=== PATIENT | male | born 1995 | race Hispanic/Latino ===

== ENCOUNTER 2018-02-04 22:10 | Emergency (ER) | payer OTHER, SELFPAY ==
[2018-02-04] MEDS ORDERED: IBUPROFEN 400 MG TAB ONE (23:57)
[2018-02-04] MEDS ORDERED: IBUPROFEN 200 MG TAB PO ONE (23:57)
--- NOTE | 2018-02-05 00:16 | EDPHYS ---
Physician Documentation [facility] Name: Kristopher Jarquin Age: 22 yrs Sex: Male : 1995 Arrival Date: 02/04/2018 Time: 22:11 Bed 23 Private MD: ED Physician Mike Orlando HPI: 02/04 22:49 This 22 yrs old Male presents to ER via Wheelchair with complaints of Leg faisal Injury. 22:49 The patient presents with pain, that is acute. The complaints affect the lateral aspect faisal of left calf. Context: The problem was sustained at home. Onset: The symptoms/episode began/occurred just prior to arrival. Modifying factors: The symptoms are alleviated by nothing. the symptoms are aggravated by nothing. Associated signs and symptoms: The patient has no apparent associated signs or symptoms. Treatment prior to arrival includes: no previous treatment. Severity of symptoms: At their worst the symptoms were mild, in the emergency department the symptoms are unchanged. The patient has not experienced similar symptoms in the past. Historical: - Allergies: 22:16 No Known Allergies; la1 - PMHx: 22:16 None; la1 - Immunization history:: Adult Immunizations up to date. - Social history:: Smoking status: Patient/guardian denies using tobacco. - Family history:: not pertinent. ROS: 22:49 Constitutional: Negative for fever, chills, and weight loss, Eyes: Negative for injury, faisal pain, redness, and discharge, ENT: Negative for injury, pain, and discharge, Neck: Negative for injury, pain, and swelling, Cardiovascular: Negative for chest pain, palpitations, and edema, Respiratory: Negative for shortness of breath, cough, wheezing, and pleuritic chest pain, Abdomen/GI: Negative for abdominal pain, nausea, vomiting, diarrhea, and constipation, Back: Negative for injury and pain, : Negative for injury, bleeding, discharge, and swelling, Skin: Negative for injury, rash, and discoloration, Neuro: Negative for headache, weakness, numbness, tingling, and seizure, Psych: Negative for depression, anxiety, suicide ideation, homicidal ideation, and hallucinations, Allergy/Immunology: Negative for hives, rash, and allergies, Endocrine: Negative for neck swelling, polydipsia, polyuria, polyphagia, and marked weight changes, Hematologic/Lymphatic: Negative for swollen nodes, abnormal bleeding, and unusual bruising. 22:49 MS/extremity: Positive for pain, tenderness, of the left fernandes. Exam: 22:49 Constitutional: This is a well developed, well nourished patient who is awake, alert, faisal and in no acute distress. Head/Face: Normocephalic, atraumatic. Eyes: Pupils equal round and reactive to light, extra-ocular motions intact. Lids and lashes normal. Conjunctiva and sclera are non-icteric and not injected. Cornea within normal limits. Periorbital areas with no swelling, redness, or edema. ENT: Nares patent. No nasal discharge, no septal abnormalities noted. Tympanic membranes are normal and external auditory canals are clear. Oropharynx with no redness, swelling, or masses, exudates, or evidence of obstruction, uvula midline. Mucous membranes moist. Neck: Trachea midline, no thyromegaly or masses palpated, and no cervical lymphadenopathy. Supple, full range of motion without nuchal rigidity, or vertebral point tenderness. No Meningismus. Chest/axilla: Normal chest wall appearance and motion. Nontender with no deformity. No lesions are appreciated. Cardiovascular: Regular rate and rhythm with a normal S1 and S2. No gallops, murmurs, or rubs. Normal PMI, no JVD. No pulse deficits. Respiratory: Lungs have equal breath sounds bilaterally, clear to auscultation and percussion. No rales, rhonchi or wheezes noted. No increased work of breathing, no retractions or nasal flaring. Abdomen/GI: Soft, non-tender, with normal bowel sounds. No distension or tympany. No guarding or rebound. No evidence of tenderness throughout. Back: No spinal tenderness. No costovertebral tenderness. Full range of motion. Male : Normal genitalia with no discharge or lesions. Skin: Warm, dry with normal turgor. Normal color with no rashes, no lesions, and no evidence of cellulitis. Neuro: Awake and alert, GCS 15, oriented to person, place, time, and situation. Cranial nerves II-XII grossly intact. Motor strength 5/5 in all extremities. Sensory grossly intact. Cerebellar exam normal. Normal gait. Psych: Awake, alert, with orientation to person, place and time. Behavior, mood, and affect are within normal limits. 22:49 Musculoskeletal/extremity: Extremities: noted in the lateral aspect of left calf: decreased ROM, pain. Vital Signs: 22:16 BP 140 / 81; Pulse 90; Resp 19; Temp 97.8; Pulse Ox 100% on R/A; Weight 52.16 kg; la1 Height 5 ft. 4 in. (162.56 cm); 22:35 BP 154 / 80; Pulse 78; Resp 18; Pulse Ox 100% on R/A; tl3 02/05 00:01 BP 131 / 55; Pulse 86; Resp 16; Pulse Ox 100% on R/A; tl3 00:34 BP 124 / 50; Pulse 74; Resp 18; Pulse Ox 100% ; tl3 02/04 22:16 Body Mass Index 19.74 (52.16 kg, 162.56 cm) la1 MDM: 02/04 22:24 Patient medically screened. [facility] 22:54 Data reviewed: vital signs, nurses notes, radiologic studies, plain films. [facility] 02/04 22:49 Order name: Tib Fib Left XRAY [facility] 02/05 00:15 Order name: Crutches; Complete Time: 00:16 [facility] 02/05 00:15 Order name: Splint - Ankle: Posterior; Complete Time: 00:16 [facility] 02/05 00:15 Order name: Ice pack; Complete Time: 00:16 [facility] Administered Medications: 02/05 00:00 Drug: Motrin 600 mg Route: PO; tl3 00:41 Follow up: Response: No adverse reaction tl3 Disposition: 02/05/18 00:15 Discharged to Home. Impression: Fracture of shaft of fibula. - Condition is Stable. - Discharge Instructions: Fibular Fracture, Pediatric. - Prescriptions for Ibuprofen 600 mg Oral Tablet - take 1 tablet by ORAL route every 8 hours As needed take with food; 21 tablet. Tylenol- Codeine #3 300-30 mg Oral Tablet - take 2 tablets by ORAL route every 6 hours As needed; 24 tablet. - Medication Reconciliation Form, Thank You Letter, Antibiotic Education, Prescription Opioid Use, Work release form form. - Follow up: Private Physician; When: 2 - 3 days; Reason: Recheck today's complaints, Continuance of care, Re-evaluation by your physician. Follow up: Chriss Smith MD; When: 2 - 3 days; Reason: Recheck today's complaints, Re-evaluation by your physician. - Problem is new. - Symptoms have improved. Signatures: Dispatcher [employer] EDMike Muñoz MD MD cha Attema, Lee, RN RN la1 Lexy Ramsey, RN RN tl3 Corrections: (The following items were deleted from the chart) 00:44 00:15 02/05/2018 00:15 Discharged to Home. Impression: Fracture of shaft of fibula. tl3 Condition is Stable. Forms are Medication Reconciliation Form, Thank You Letter, Antibiotic Education, Prescription Opioid Use. Follow up: Private Physician; When: 2 - 3 days; Reason: Recheck today's complaints, Continuance of care, Re-evaluation by your physician. Follow up: Chriss Smith; When: 2 - 3 days; Reason: Recheck today's complaints, Re-evaluation by your physician. Problem is new. Symptoms have improved. faisal
--- NOTE | 2018-02-05 00:16 | ER ---
Nurse's Notes [facility] Name: Kristopher Jarquin Age: 22 yrs Sex: Male : 1995 Arrival Date: 02/04/2018 Time: 22:11 Bed 23 Private MD: Diagnosis: Fracture of shaft of fibula Presentation: 02/04 22:15 Presenting complaint: Patient states: LLE pain for one week after injury during la1 basketball. Transition of care: patient was not received from another setting of care. Onset of symptoms was February 04, 2018. Initial Sepsis Screen: Does the patient meet any 2 criteria? No. Patient's initial sepsis screen is negative. Does the patient have a suspected source of infection? No. Patient's initial sepsis screen is negative. Care prior to arrival: None. 22:15 Method Of Arrival: Wheelchair la1 22:15 Acuity: BARBI 4 la1 Triage Assessment: 02/05 00:43 Injury Description: injured while playing basketball three weeks ago. tl3 Historical: - Allergies: 02/04 22:16 No Known Allergies; la1 - PMHx: 22:16 None; la1 - Immunization history:: Adult Immunizations up to date. - Social history:: Smoking status: Patient/guardian denies using tobacco. - Family history:: not pertinent. Screenin:35 Abuse screen: Denies threats or abuse. Nutritional screening: No deficits noted. tl3 Tuberculosis screening: No symptoms or risk factors identified. Fall Risk None identified. Assessment: 22:35 General: Appears in no apparent distress. comfortable, well groomed, well developed, tl3 well nourished, Behavior is calm, cooperative, appropriate for age. Pain: Complains of pain in lateral aspect of left calf, left calf, left Achilles and medial aspect of left calf. Neuro: Level of Consciousness is awake, alert, obeys commands, Oriented to person, place, time, situation, Appropriate for age. Cardiovascular: Reports None Heart tones S1 S2 present Patient's skin is warm and dry. Respiratory: Airway is patent Trachea midline Respiratory effort is even, unlabored, Respiratory pattern is regular, symmetrical, Breath sounds are clear bilaterally. GI: No signs and/or symptoms were reported involving the gastrointestinal system. : No signs and/or symptoms were reported regarding the genitourinary system. EENT: No signs and/or symptoms were reported regarding the EENT system. Derm: No signs and/or symptoms reported regarding the dermatologic system. Musculoskeletal: Reports pain in left leg since three weeks ago, cap refill two seconds, able to move toes freely. 02/05 00:01 Reassessment: Patient appears in no apparent distress at this time. No changes from tl3 previously documented assessment. Patient and/or family updated on plan of care and expected duration. Pain level reassessed. Patient is alert, oriented x 3, equal unlabored respirations, skin warm/dry/pink. x-ray at bedside. 00:34 Reassessment: Patient appears in no apparent distress at this time. No changes from tl3 previously documented assessment. Patient and/or family updated on plan of care and expected duration. Pain level reassessed. Patient is alert, oriented x 3, equal unlabored respirations, skin warm/dry/pink. posterior leg splint placed and crutches provided with training on proper usage, pt demonstrated proper usage. Vital Signs: 02/04 22:16 BP 140 / 81; Pulse 90; Resp 19; Temp 97.8; Pulse Ox 100% on R/A; Weight 52.16 kg; la1 Height 5 ft. 4 in. (162.56 cm); 22:35 BP 154 / 80; Pulse 78; Resp 18; Pulse Ox 100% on R/A; tl3 02/05 00:01 BP 131 / 55; Pulse 86; Resp 16; Pulse Ox 100% on R/A; tl3 00:34 BP 124 / 50; Pulse 74; Resp 18; Pulse Ox 100% ; tl3 02/04 22:16 Body Mass Index 19.74 (52.16 kg, 162.56 cm) la1 ED Course: 02/04 22:11 Patient arrived in ED. am2 22:16 Triage completed. la1 22:16 Arm band placed on left wrist. la1 22:24 Mike Orlando MD is Attending Physician. [facility] 22:24 Lexy Ramsey, DEANDRE is Primary Nurse. tl3 22:35 Patient has correct armband on for positive identification. Bed in low position. Call tl3 light in reach. Side rails up X 1. Adult w/ patient. Pulse ox on. NIBP on. Door closed. Warm blanket given. 22:35 No provider procedures requiring assistance completed. Patient did not have IV access tl3 during this emergency room visit. 02/05 00:15 Tib Fib Left XRAY In Process Unspecified. EDMS 00:15 Chriss Smith MD is Referral Physician. faisal Administered Medications: 00:00 Drug: Motrin 600 mg Route: PO; tl3 00:41 Follow up: Response: No adverse reaction tl3 Outcome: 00:15 Discharge ordered by . faisal 00:41 Discharged to home with crutches. tl3 00:41 Condition: stable 00:41 Discharge instructions given to patient, Instructed on discharge instructions, follow up and referral plans. medication usage, Demonstrated understanding of instructions, follow-up care, medications, crutch walking, Prescriptions given X 2. 00:44 Patient left the ED. tl3 Signatures: Dispatcher [employer] EDNY Mike Orlando MD MD cha Attema, Lee, RN RN la1 Nicol Chan Tammy, RN RN tl3
--- NOTE | 2018-02-05 09:07 | RAD REPORT ---
EXAM DESCRIPTION: RAD - Tib Fib Left - 02/05/2018 12:13 am CLINICAL HISTORY: Pain COMPARISON: None. FINDINGS: Fracture involving the distal shaft of the fibula seen. Moderate callus formation is noted about the fracture site indicating some healing. Fracture lucency persists. The soft tissues adjacen t to this region are mildly edematous.
== END 2018-02-05 00:44 | disposition home or self-care (01) ==
LOC: ER 22:10
PROC: 2W3RX1Z Immobilization of Left Lower Leg using Splint (ICD-10-PCS; principal; 2018-02-05)
DX: S82.492A Other fracture of shaft of left fibula, initial encounter for closed fracture (principal); X58.XXXA Exposure to other specified factors, initial encounter; Y93.67 Activity, basketball; Y92.9 Unspecified place or not applicable
CPT/HCPCS: 99284

== ENCOUNTER 2025-07-08 19:09 | Emergency (ER) | payer SELFPAY ==
[2025-07-08] MEDS ORDERED: THIAMINE 200 MG/2 ML INJ ONE (19:30)
[2025-07-08] MEDS ORDERED: NA CHLORIDE 0.9% 50 ML ONE (19:30)
[2025-07-08] MEDS ORDERED: D5 0.9 NS 1,000 ML IV ONE ×2 (19:30→22:00)
[2025-07-08] MEDS ORDERED: FAMOTIDINE 20 MG/2 ML VIAL IV ONE (19:30)
[2025-07-08 19:39] LABS: Absolute Lymphocytes (CBC) 1.8 K/uL (0.7-4.9); Hematocrit 55.0 % (39.6-49.0); Hemoglobin 18.9 g/dL (13.6-17.9); MCH 31.8 pg (27.0-35.0); MCHC 34.3 g/dL (32.0-36.0); MCV 92.8 fL (80-100); MPV 9.2 fL (7.6-11.3); Nucleated RBC Absolute Count 0.0 (0-0); Nucleated Red Blood Cells % 0.1 % (0-0); RBC Red Blood Cell Count 5.93 M/uL (4.33-5.43); White Blood Count 13.90 thou/uL (4.3-10.9)
[2025-07-08 20:03] LABS: ALT/SGPT 302.0 U/L (16-61); AST/SGOT 464.0 U/L (15-37); Albumin 5.0 g/dL (3.4-5.0); Albumin/Globulin Ratio 1.1 (1.1-1.8); Alkaline Phosphatase 123.0 U/L (45-117); Anion Gap 15.4 mEq/L (5.0-15.0); BUN Blood Urea Nitrogen 9.0 mg/dL (7-18); Globulin 4.6 g/dL (2.3-3.5); Glucose Level 148.0 mg/dL (74-106); Lipase 21.0 U/L (13-75); Magnesium 2.0 mg/dL (1.6-2.4); Potassium 3.4 mEq/L (3.5-5.1)
[2025-07-08 20:58] LABS: PT Prothrombin Time 15.0 SECONDS (10-13.0); Protime INR 1.34
--- NOTE | 2025-07-08 21:35 | RAD REPORT ---
EXAMINATION: US Abdomen Exam Limited CLINICAL HISTORY: ABD PAIN COMPARISON: None. TECHNIQUE: Limited upper abdominal grayscale and color flow sonographic images. FINDINGS: Gallbladder: Normal. Bile ducts: No intrahepatic or extrahepatic biliary dilatation. Common bile duct measures 3 mm. Liver: Visualized portions of the liver demonstrate normal echogenicity with no suspicious findings. Fluid: No ascites. IMPRESSION: No abnormalities on right upper quadrant ultrasound.
[2025-07-08 22:09] LABS: Hepatitis B surface AG Interp. Nonreactive (Nonreactive)
[2025-07-08 22:11] LABS: HBsAG Nonreactive Report Report
--- NOTE | 2025-07-08 22:19 | ER ---
Nurse's Notes [facility] Name: Kristopher Jarquin Age: 30 yrs Sex: Male : 1995 Arrival Date: 07/08/2025 Time: 19:09 Bed 5 Private MD: Diagnosis: Alcoholic hepatitis;Nausea with vomiting, unspecified;Alcohol abuse Presentation: 07/08 19:17 Chief complaint: Patient states: c/o dizziness, n/v, epigastric abdominal pain, chills, me1 body aches and muscle cramps that started today. Patient reports he drinks at least a 6 pack of beer everyday. Coronavirus screen: Vaccine status: Patient reports being unvaccinated. Ebola Screen: No symptoms or risks identified at this time. Initial Sepsis Screen: Does the patient meet any 2 criteria? HR > 90 bpm. Does the patient have a suspected source of infection? No. Patient's initial sepsis screen is negative. Risk Assessment: Do you want to hurt yourself or someone else? Patient reports no desire to harm self or others. Onset of symptoms was July 08, 2025 at 07:00. 19:17 Method Of Arrival: [place] [facility] [place] 19:17 Acuity: BARBI 3 me1 Historical: - Allergies: 19:19 No Known Allergies; me1 - PMHx: 19:19 etoh abuse; me1 - PSHx: 19:19 None; me1 - Immunization history:: Adult Immunizations up to date. - Infectious Disease History:: Denies. - Social history:: Smoking status: Reported history of juuling and/or vaping. Screenin:20 [facility] ED Fall Risk Assessment (Adult) History of falling in the last 3 months, vc1 including since admission No falls in past 3 months (0 pts) Confusion or Disorientation No (0 pts) Intoxicated or Sedated Yes (3 pts) Impaired Gait No (0 pts) Mobility Assist Device Used No (0 pt) Altered Elimination No (0 pt) Score/Fall Risk Level 3 or more points = High Risk Oriented to surroundings, Maintained a safe environment, Educated pt \T\ family on fall prevention, incl call for assistance when getting out of bed, Assessed \T\ reinforced patient's understanding of fall precautions, Hourly rounding (assess needs \T\ fall precautionary measures) done. Abuse screen: Denies threats or abuse. Nutritional screening: No deficits noted. Tuberculosis screening: No symptoms or risk factors identified. Assessment: 19:42 General: Appears distressed, uncomfortable, Behavior is cooperative, anxious. Pain: vc1 Complains of pain in muscles cramping all over Pain currently is 10 out of 10 on a pain scale. Quality of pain is described as crampy, Noted to be restless, Also complains of nausea. Neuro: Level of Consciousness is awake, alert, obeys commands, Oriented to person, place, time, situation, Appropriate for age. Cardiovascular: Capillary refill < 3 seconds Patient's skin is warm and dry. Cardiovascular: Heart tones S1 S2 present Rhythm is sinus tachycardia. Respiratory: Airway is patent Respiratory effort is even, unlabored, Respiratory pattern is regular, symmetrical. GI: Abdomen is flat, non-distended, Pt is actively vomiting Reports nausea, vomiting. : No deficits noted. No signs and/or symptoms were reported regarding the genitourinary system. EENT: No deficits noted. No signs and/or symptoms were reported regarding the EENT system. Derm: Skin is intact, Skin is clammy, Skin is normal, Skin temperature is cool. Musculoskeletal: Circulation, motion, and sensation intact. Range of motion: intact in all extremities. 20:20 Reassessment: Patient appears in no apparent distress at this time. Patient and/or vc1 family updated on plan of care and expected duration. Pain level reassessed. Patient states symptoms have improved. 21:41 Reassessment: Patient appears in no apparent distress at this time. Patient and/or vc1 family updated on plan of care and expected duration. Pain level reassessed. Patient states symptoms have improved. 22:30 Reassessment: Patient appears in no apparent distress at this time. No changes from 1 previously documented assessment. Patient and/or family updated on plan of care and expected duration. Pain level reassessed. Patient is alert, oriented x 3, equal unlabored respirations, skin warm/dry/pink. Patient denies pain at this time. Patient states feeling better. 22:47 General: discharge pending fluids infusing. vc1 Vital Signs: 19:17 BP 160 / 104; Pulse 110; Resp 18; Temp 98.2; Pulse Ox 98% ; Weight 77.11 kg; Height 5 me1 ft. 4 in. ; Pain 10/10; 20:00 BP 165 / 57; Pulse 106; Resp 18; Pulse Ox 96% ; vc1 21:30 BP 124 / 61; Pulse 90; Resp 16; Pulse Ox 95% ; vc1 22:29 BP 145 / 74; Pulse 97; Resp 19; Pulse Ox 98% on R/A; vc1 23:08 BP 120 / 67; Pulse 94; Resp 17; Pulse Ox 96% ; vc1 19:17 Body Mass Index 29.18 (77.11 kg, 162.56 cm) me1 19:17 Pain Scale: Adult me1 ED Course: 19:12 Patient arrived in ED. al6 19:12 Aftab Woodruff DO is Attending Physician. tt7 19:19 Triage completed. me1 19:19 Arm band placed on Patient placed in an exam room. me1 19:20 Patient has correct armband on for positive identification. Bed in low position. Call vc1 light in reach. Provided Education on: Plan of care. Pulse ox on. NIBP on. 19:26 Sangita James, RN is Primary Nurse. vc1 19:34 Inserted saline lock: 20 gauge in right hand, using aseptic technique. Blood collected. hw Flushed with 10 mL NS. 21:15 Abdomen Limited US In Process Unspecified. EDMS 23:08 No provider procedures requiring assistance completed. IV discontinued, intact, vc1 bleeding controlled, No redness/swelling at site. Pressure dressing applied. Administered Medications: 19:41 Drug: Thiamine IV 200 mg IV at bolus once Route: IV; Rate: bolus; Site: right hand; vc1 19:45 Follow up: IV Status: Completed infusion; IV Intake: 10ml vc1 19:41 Drug: D5-NS IV 1000 ml IV at 1000 ml/hr bolus Route: IV; Rate: 1000 ml/hr; Site: right vc1 hand; 20:41 Follow up: IV Status: Completed infusion; IV Intake: 1000ml vc1 19:42 Drug: Famotidine IVP 20 mg IVP once; dilute with 10 mL 0.9% NaCl; give over 2 minutes vc1 Route: IVP; Site: right hand; 20:00 Follow up: Response: No adverse reaction; Marked relief of symptoms vc1 19:42 Drug: Droperidol IVP 1.25 mg IVP once Route: IVP; Site: right hand; vc1 20:00 Follow up: Response: No adverse reaction; Marked relief of symptoms vc1 22:04 Drug: D5-NS IV 1000 ml IV at 1000 ml/hr bolus Route: IV; Rate: 1000 ml/hr; Site: right vc1 hand; 23:04 Follow up: IV Status: Completed infusion; IV Intake: 1000ml vc1 22:24 CANCELLED (Other Intervention Used): [id number] mg PO once tt7 22:29 Not Given (Other Intervention Used): [id number] mg IVPB once vc1 22:47 Drug: PHENobarbital PO 120 mg PO once Route: PO; vc1 23:09 Follow up: Response: No adverse reaction vc1 Medication: 20:22 VIS not applicable for this client. vc1 Intake: 19:45 IV: 10ml; Total: 10ml. vc1 20:41 IV: 1000ml; Total: 1010ml. vc1 23:04 IV: 1000ml; Total: 2010ml. vc1 Outcome: 22:19 Discharge ordered by MD. tt7 23:08 Discharged to home ambulatory, with family, vc1 23:08 Condition: stable 23:08 Discharge instructions given to patient, Instructed on discharge instructions, follow up and referral plans. Demonstrated understanding of instructions, follow-up care, 23:09 Patient left the ED. vc1 Signatures: Dispatcher [employer] Sangita Pringle RN RN vc1 Kiera Basilio RN RN me1 Debra Aparicio Alissa alAftab Donald, DO tt7
--- NOTE | 2025-07-08 22:19 | EDPHYS ---
Physician Documentation [facility] Name: Kristopher Jarquin Age: 30 yrs Sex: Male : 1995 Arrival Date: 07/08/2025 Time: 19:09 Bed 5 Private MD: ED Physician Aftab Woodruff HPI: 07/08 19:24 This 30 yrs old Male presents to ER via Ambulatory with complaints of Vomiting.tt7 19:24 Patient reports that today he had onset of epigastric burning abdominal pain with tt7 nausea and multiple episodes of nonbloody nonbilious vomiting. He also reports feeling anxious and having myalgias. He denies sick contacts. Denies fever. Reports that he drinks at least 6 beers daily. Denies other significant medical history. Historical: - Allergies: 19:19 No Known Allergies; me1 - PMHx: 19:19 etoh abuse; me1 - PSHx: 19:19 None; me1 - Immunization history:: Adult Immunizations up to date. - Infectious Disease History:: Denies. - Social history:: Smoking status: Reported history of juuling and/or vaping. ROS: 19:20 Constitutional: negative for fever. Cardiovascular: negative for chest pain. tt7 19:20 Respiratory: Positive for shortness of breath, 19:20 Abdomen/GI: Positive for nausea and vomiting, 19:20 MS/extremity: Negative for injury or acute deformity, 19:20 Skin: Negative for rash, 19:20 Neuro: Negative for altered mental status, seizure activity, 19:20 Psych: Positive for anxiety, Exam: 07/09 06:44 Constitutional: vital signs reviewed, well appearing. Head/Face: normocephalic, tt7 atraumatic. ENT: mucus membranes moist. Neck: trachea midline, no JVD, no meningismus. Chest/axilla: normal chest wall appearance and motion, nontender, no crepitus. Cardiovascular: regular rate and rhythm, no murmurs, no rubs, no lower extremity edema. Respiratory: normal respiratory effort, no accessory muscle use, lungs CTAB. Abdomen/GI: soft, nondistended, nontender, no guarding or rebound, negative Vazquez's sign, no McBurney point tenderness. Back: normal ROM. Skin: warm, dry, intact, normal turgor, normal color, no rash. MS/ Extremity: normal ROM of extremities, no gross deformities. Neuro: alert and oriented with appropriate mental status, normal speech, follows commands, no focal neurologic deficits. Psych: appropriate mood and affect. Eyes: Pupils: equal, round, and reactive to light and accomodation, Conjunctiva: normal, Sclera: icterus, is present, Vital Signs: 07/08 19:17 BP 160 / 104; Pulse 110; Resp 18; Temp 98.2; Pulse Ox 98% ; Weight 77.11 kg; Height 5 me1 ft. 4 in. ; Pain 10/; 20:00 BP 165 / 57; Pulse 106; Resp 18; Pulse Ox 96% ; vc1 21:30 BP 124 / 61; Pulse 90; Resp 16; Pulse Ox 95% ; vc1 22:29 BP 145 / 74; Pulse 97; Resp 19; Pulse Ox 98% on R/A; vc1 23:08 BP 120 / 67; Pulse 94; Resp 17; Pulse Ox 96% ; vc1 19:17 Body Mass Index 29.18 (77.11 kg, 162.56 cm) me1 19:17 Pain Scale: Adult me1 MDM: 19:13 Medical Screening Exam initiated tt7 19:21 Differential diagnosis: generalized weakness, hypovolemia, near-syncope, vertigo, tt7 Alcohol intoxication, alcohol withdrawal, alcoholic ketoacidosis, alcoholic gastritis, pancreatitis, hyponatremia, hypokalemia. 19:23 Data reviewed: vital signs, nurses notes, lab test result(s). tt7 19:25 ED course: Patient appears slightly uncomfortable and is anxious, suspect that his tt7 presentation is likely due to alcoholic gastritis and possibly some component of alcohol withdrawal, alcoholic ketoacidosis is also a consideration, he is mildly hypertensive and mildly tachycardic, no acute respiratory distress, saturating appropriately, will obtain complete blood count, chemistry, lipase, magnesium level, and ethanol level. Will treat the patient with IV thiamine, antiemetic, H2 marcie, and D5 normal saline. 21:58 ED course: Workup is consistent with alcoholic hepatitis, ultrasound of the right upper tt7 quadrant was performed, no biliary pathology noted, liver does not have fatty infiltration or evidence of cirrhosis, Maddrey score of 24.4, I discussed the results of the workup with the patient, I offered to attempt to transfer patient to [facility] for hepatology evaluation, and risk/benefit discussion with the patient about this, although I feel this would be best for the patient do believe that is reasonable given his low Madrey score to follow-up as an outpatient with strict return precautions, patient was given information to call the [facility] liver disease clinic on Friday morning, I discussed with the patient the importance of cessation of alcohol use, I offered phenobarbital for prevention of withdrawal symptoms, we apparently do not have IV phenobarbital at this facility so he was given an oral dose, after completion of the patient's emergency department evaluation, I do not suspect a life-threatening or disabling process. Patient is medically stable and not in need of emergent medical intervention. I had a detailed discussion with the patient regarding the historical points, exam findings, emergency department evaluation, diagnostic results, and the discharge diagnosis. I instructed the patient on outpatient management of their condition. I discussed the need for outpatient follow-up with a primary care physician. I informed the patient on return precautions, including the need to return to the ED if symptoms do not improve, worsen, or if there are any questions or concerns that arise at home. The patient was discharged in stable condition. 07/08 19:17 Order name: CBC with Diff; Complete Time: 20:06 tt7 07/08 19:17 Order name: CMP; Complete Time: 20:06 tt7 07/08 19:17 Order name: Lipase; Complete Time: 20:06 tt7 07/08 19:23 Order name: Ethanol; Complete Time: 20:06 tt7 07/08 19:37 Order name: Magnesium; Complete Time: 20:06 EDMS 07/08 20:25 Order name: PT-INR; Complete Time: 21:36 tt7 07/08 20:25 Order name: Hepatitis Panel; Complete Time: 22:20 tt7 07/08 20:08 Order name: Abdomen Limited US; Complete Time: 21:36 tt7 07/08 19:17 Order name: IV Saline Lock; Complete Time: 19:34 tt7 07/08 19:17 Order name: Labs collected and sent; Complete Time: 19:34 tt7 Administered Medications: 19:41 Drug: Thiamine IV 200 mg IV at bolus once Route: IV; Rate: bolus; Site: right hand; vc1 19:45 Follow up: IV Status: Completed infusion; IV Intake: 10ml vc1 19:41 Drug: D5-NS IV 1000 ml IV at 1000 ml/hr bolus Route: IV; Rate: 1000 ml/hr; Site: right vc1 hand; 20:41 Follow up: IV Status: Completed infusion; IV Intake: 1000ml vc1 19:42 Drug: Famotidine IVP 20 mg IVP once; dilute with 10 mL 0.9% NaCl; give over 2 minutes vc1 Route: IVP; Site: right hand; 20:00 Follow up: Response: No adverse reaction; Marked relief of symptoms vc1 19:42 Drug: Droperidol IVP 1.25 mg IVP once Route: IVP; Site: right hand; vc1 20:00 Follow up: Response: No adverse reaction; Marked relief of symptoms vc1 22:04 Drug: D5-NS IV 1000 ml IV at 1000 ml/hr bolus Route: IV; Rate: 1000 ml/hr; Site: right vc1 hand; 23:04 Follow up: IV Status: Completed infusion; IV Intake: 1000ml vc1 22:24 CANCELLED (Other Intervention Used): [id number] mg PO once tt7 22:29 Not Given (Other Intervention Used): [id number] mg IVPB once vc1 22:47 Drug: PHENobarbital PO 120 mg PO once Route: PO; vc1 23:09 Follow up: Response: No adverse reaction vc1 Disposition: 07/09 06:47 Co-signature as Attending Physician, Aftab Woodruff DO. tt7 Disposition Summary: 07/08/25 22:19 Discharge Ordered Notes: Location: Home tt7 Problem: new tt7 Symptoms: have improved tt7 Condition: Fair tt7 Diagnosis - Alcoholic hepatitis tt7 - Nausea with vomiting, unspecified tt7 - Alcohol abuse tt7 Followup: tt7 - With: Emergency Department - When: As needed - Reason: Discharge Instructions: - Discharge Summary Sheet tt7 - Alcohol Abuse and Nutrition tt7 - Alcoholic Liver Disease, [id number] tt7 - Alcoholic Hepatitis tt7 Forms: - Medication Reconciliation Form tt7 - Antibiotic Education tt7 - Prescription Opioid Use tt7 - Patient Portal Instructions tt7 - Leadership Thank You Letter tt7 Signatures: Dispatcher MedHo Sangita Pringle RN RN vc1 Kiera Basiilo RN RN me1 Aftab Woodruff DO DO tt7 Corrections: (The following items were deleted from the chart) 07/08 19:17 CBC+H.LAB.BRZ ordered. EDMS EDMS : 19:17 COMPREHENSIVE METABOLIC PANEL+C.LAB.BRZ ordered. EDMS EDMS : 19:17 LIPASE+C.LAB.BRZ ordered. EDMS EDMS 19:37 19:22 MAGNESIUM+C.LAB.BRZ ordered. EDMS EDMS 20:25 20:25 PROTIME (+INR)+COAG.LAB.BRZ ordered. EDMS EDMS 20:25 20:25 Acute Hepatitis Panel+SC.LAB.BRZ ordered. EDMS EDMS 22:24 22:23 PHENobarbital PO 100 mg PO once ordered. tt7 tt7 07/09 06:47 07/08 21:58 ED course: Maddrey score of 24.4. tt7 tt7
[2025-07-08] MEDS ORDERED: PHENOBARBITAL 30 MG TABLET PO ONE ×2 (22:25→22:36)
[2025-07-09 05:33] VITALS: TEMP 98.2
[2025-07-09 05:37] VITALS: BP 120/67; O2SAT 96
== END 2025-07-08 23:09 | disposition home or self-care (01) ==
LOC: ER 19:09
DX: K70.10 Alcoholic hepatitis without ascites (principal); F10.10 Alcohol abuse, uncomplicated
CPT/HCPCS: 36415; 76705; 80053; 80074; 82077; 83690; 83735; 85025; 85610; 96361; 96374; 96375; 99284; J1790; J3411; J7042